=== PATIENT | female | born 1925 | race Caucasian/White ===

== ENCOUNTER 2016-04-12 15:17 | Emergency (ER) | payer MEDICARE ==
[~2016-04-12] VITALS: Ht 142.2 cm; Wt 59.0 kg
[~2016-04-12 15:17] MED LIST: /PRAV20TA PO; ATEN25TA PO; BISO10TA42 PO; CALCTAB68 PO; CAPTO25TA PO; CLAR10CA3 PO; COLA50CA3 PO; FISHCAP PO; IRON325T3 PO; IRONTAB3 PO; KLOR10TA5 PO; LASI20TA PO; LISI5TAB PO; MILK2400 PO; MIRA3350 PO; MOME50SP; MULTCAP PO; PRAD75CA3 PO; PRIL20CA PO; PROL60SO SC; VICO5TAB16 PO; VICOBULK PO; VITA400T15 PO
[2016-04-12] MEDS ORDERED: CLAR10CA3 PO (16:03)
[2016-04-12] MEDS ORDERED: FURO20TA2 PO (16:03)
[2016-04-12] MEDS ORDERED: PRAD75CA3 PO (16:03)
[2016-04-12] MEDS ORDERED: COLA100C PO (16:03)
[2016-04-12] MEDS ORDERED: PRAV10TA PO (16:03)
[2016-04-12] MEDS ORDERED: DILT240C5 PO (16:03)
[2016-04-12] MEDS ORDERED: [UNRECOGNIZED DRUG - CODE] PO (16:03)
[2016-04-12] MEDS ORDERED: PROP60CA PO (16:03)
[2016-04-12] MEDS ORDERED: PRIL20CA9 PO (16:03)
[2016-04-12] MEDS ORDERED: IRON65TA PO (16:03)
[2016-04-12] MEDS ORDERED: ALEN70SO PO (16:03)
[2016-04-12] MEDS ORDERED: HYDR-3713 PO (16:03)
[2016-04-12] MEDS ORDERED: ACID1CAP PO (16:03)
[2016-04-12] MEDS ORDERED: NORCO, ANEXSIA 5/325MG TABLET (HYDROcodone/ACETAMINOPHEN) PO ONE (20:00)
[2016-04-12 21:33] VITALS: BP 145/84
--- NOTE | 2016-04-12 21:50 | REPUSA ---
CT of the lumbar spine without contrast Clinical history: Pain. Technique: Multiple axial CT images were obtained through the lumbar spine without administration of contrast. Coronal and sagittal 3-D reconstructed images were also obtained. Findings: The lumbar vertebral bodies are in satisfactory positioning and alignment. There is lumbarization of the S1 vertebral body. There is a moderate anterior chronic compression fracture of L1. No acute frac tures or dislocations are demonstrated. Intervertebral disc spaces are moderately narrowed at L1/L2, L4/L5 and L5/S1. There is no evidence of facet subluxation. The neural foramen appear grossly patent. The spinal canal demonstrates normal caliber and contour without evidence of spinal stenosis. The curry rrounding soft tissues are within normal limits. Impression: 1. No acute osseous abnormality. 2. Chronic, moderately severe anterior wedge compression defect of L1. 3. Multilevel degenerative disc disease in the lumbar spine as described.
--- NOTE | 2016-04-13 08:38 | REP ---
Lumbar spine series: Five views. History: Back pain after a fall. Comparison study January 28, 2005. Comparison is also made with lateral chest x-ray from November 03, 2010. Findings: Five views of the lumbar spine show degenerative spondylosis changes with discogenic spurring at each lumbar level. There is old moderate anterior wedging at the L1 vertebral body. This is unchanged from the 2010 prior lateral chest x-ray but new from the 2004 prior lumbar spine radiographs. The lumbar vertebral body heights are otherwise preserved. Advanced discogenic spurring is seen at T12-L1. Pedicles and posterior elements are intact. There is osteoarthritic facet hypertrophy and some narrowing at L4-5 and L5-S1 bilaterally. Sacrum and SI joints are intact. Psoas margins are symmetric. Vascular calcification is seen and is somewhat ectatic but non-aneurysmal aorta. There are clips in the right upper quadrant of the abdomen. Impression: Old wedging at the L1 vertebral body. Degenerative spondylosis seen. No acute fracture. Signed by Lowell Hussein MD 04/13/2016 10:04 A
== END 2016-04-12 20:05 | disposition home or self-care (01) ==
LOC: M ED 19:39
DX: M48.56XA Collapsed vertebra, not elsewhere classified, lumbar region, initial encounter for fracture (principal); Z90.49 Acquired absence of other specified parts of digestive tract; Z90.89 Acquired absence of other organs; Z79.899 Other long term (current) drug therapy; Z88.5 Allergy status to narcotic agent; Z88.8 Allergy status to other drugs, medicaments and biological substances

== ENCOUNTER → 2016-06-17 | Outpatient (REF) | payer MEDICARE ==
[~2016-06-17] MED LIST changes: +ACID1CAP PO; +ALEN70SO PO; +COLA100C3 PO; +DILT240C75 PO; +FURO20TA2 PO; +HYDR-3713 PO; +IRON65TA PO; +PRAV10TA PO; +PRIL20CA9 PO; +PROP60CA PO; +[UNRECOGNIZED DRUG - CODE] PO
[2016-06-17 18:58] LABS: ALBUMIN 3.8 GM/DL (3.2-5.2); ANION GAP 8 MEQ/L (8-16); BLOOD UREA NITROGEN 27 MG/DL (7-18); CALCIUM LEVEL 9.6 MG/DL (8.8-10.2); CARBON DIOXIDE LEVEL 31 MEQ/L (21-32); CHLORIDE LEVEL 103 MEQ/L (98-107); CREATININE FOR GFR 0.89 MG/DL (0.55-1.02); GLOMERULAR FILTRATION RATE > 60.0 (>32); GLUCOSE, FASTING 106 MG/DL (83-110); PHOSPHORUS LEVEL 3.2 MG/DL (2.5-4.9); POTASSIUM SERUM 4.3 MEQ/L (3.5-5.1); SODIUM LEVEL 142 MEQ/L (136-145)
== END ==
LOC: M LABDRAWC 16:16
PROVIDERS: ATTEND Physician Assistant
DX: I50.42 Chronic combined systolic (congestive) and diastolic (congestive) heart failure (principal)